=== PATIENT | female | born 1935 | race Two or more races ===

== ENCOUNTER 2020-11-19 12:48 | Inpatient (IN) | payer MEDICARE, OTHER ==
[~2020-11-19] VITALS: Ht 165.1 cm; Wt 52.9 kg
[2020-11-19 13:10] LABS: Calcium, Ionized (POC) 1.08 mmol/L (1.10-1.46); Chloride (POC) 104 mmol/L (98-108); Creatinine (POC) 1.8 mg/dL (0.6-1.3); Glucose (ISTAT POC) 178 mg/dL (70-99); Hemoglobin (POC) 12.6 g/dL (12.0-17.5); Potassium (POC) 3.7 mmol/L (3.5-5.5); Sodium (POC) 137 mmol/L (135-148); Total CO2 (POC) 19 mmol/L (21-32)
[2020-11-19 13:10] LABS: Hematocrit 36.8 % (33.0-53.0); Hemoglobin 12.2 g/dL (11.5-17.5); Mean Corpuscular HGB 30.4 pg (26.0-34.0); Mean Corpuscular HGB Conc 33.2 g/dL (31.5-36.5); Mean Corpuscular Volume 92 fL (80-100); Mean Platelet Volume 10.2 fL (9.1-12.4); Platelet Count 197 K/mm3 (150-400); RDW Coefficient Variation 11.7 % (11.7-14.2); RDW Standard Deviation 39.8 fL (35.1-46.3); Red Blood Cell Count 4.01 M/mm3 (3.80-5.90); White Blood Cell Count 4.25 K/mm3 (4.00-11.30)
[2020-11-19 13:12] LABS: Base Excess Venous -6.7 mmol/L; Bicarbonate Venous 19.4 mmol/L (24.0-30.0); PCO2 Venous 37.9 mmHg (38-42); pH Blood Venous 7.32 (7.34-7.37)
[2020-11-19 13:32] LABS: Source, Urine Catheter
[2020-11-19 13:39] LABS: BAND PERCENT MAN 3 % (0-8); BASOPHILS PERCENT MAN 0 % (0-2); EOSINOPHILS PERCENT MAN 0 % (0-6); LYMPHOCYTES % ATYPICAL MANUAL 7 % (0-0); LYMPHOCYTES ABSOLUTE MAN 0.97 K/mm3 (0.84-5.20); LYMPHOCYTES PERCENT MAN 16 % (21-46); METAMYELOCYTE ABSOLUTE MAN 0.08 K/mm3 (0.00-0.00); METAMYELOCYTE PERCENT MAN 2 % (0-0); MONOCYTES ABSOLUTE MAN 0.25 K/mm3 (0.16-1.47); MONOCYTES PERCENT MAN 6 % (4-13); NEUTROPHILS ABSOLUTE MAN 2.93 K/mm3 (1.96-9.15); SEG NEUTROPHILS PERCENT MAN 66 % (41-73); TOTAL CELLS COUNTED 100
[2020-11-19 13:48] LABS: Magnesium, Blood 1.8 mg/dL (1.6-2.4); Troponin I 0.071 ng/mL (0.000-0.040)
[2020-11-19 13:55] LABS: Ethanol (Alcohol), Blood, Med <3 mg/dL
[2020-11-19 13:56] LABS: Alanine Aminotransfer (ALT/SGP 22 U/L (12-78); Albumin, Blood 3.4 g/dL (3.4-5.0); Albumin/Globulin Ratio 0.9 (0.8-1.8); Alk Phos 82 U/L (50-136); Anion Gap 15 mmol/L (6-16); Aspartate Aminotrans (AST/SGOT 45 U/L (12-37); Bilirubin, Total 0.5 mg/dL (0.1-1.0); Blood Urea Nitrogen 28 mg/dL (8-24); Bun/Creatinine Ratio 17.3 (12.0-20.0); CO2, Blood 18 mmol/L (21-32); Calcium, Blood 9.1 mg/dL (8.5-10.1); Chloride, Blood 104 mmol/L (98-108); Creatinine, Blood 1.62 mg/dL (0.40-1.20); Globulin, Blood 3.9 g/dL (2.2-4.0); Glomerular Filtration Rate Unable to Calculate (60-); Glucose, Blood 170 mg/dL (70-99); Potassium, Blood 3.7 mmol/L (3.5-5.5); Sodium, Blood 137 mmol/L (136-145); Total Protein, Blood 7.3 g/dL (6.4-8.2)
[2020-11-19 14:03] LABS: Bilirubin, Urine Neg (Neg); Blood, Urine 3+ (Neg); Color, Urine Yellow (P-Yellow); Glucose Qualitative, Urine Neg (Neg); Ketones, Urine 1+ (Neg); Leukocyte Esterase, Urine Neg (Neg); Nitrite, Urine Neg (Neg); Protein, Urine 2+ (Neg); Specific Gravity, Urine 1.015 (1.003-1.022); Urobilinogen, Urine NORM (Normal)
[2020-11-19 14:29] LABS: U Amphetamine Screen Not Detected; U Barbituate Screen Not Detected; U Benzodiazapine Screen Not Detected; U Buprenorphine Screen Not Detected; U Cannabinoids Screen Not Detected; U Cocaine Screen Not Detected; U Methadone Screen Not Detected; U Methamphetamine Screen Not Detected; U Opiates Screen Not Detected; U Oxycodone Screen Not Detected; U Phencyclidine Screen Not Detected; U Propoxyphene Screen Not Detected
[2020-11-19 14:34] LABS: Appearance, Urine Hazy (Clear)
[2020-11-19 14:36] LABS: Bacteria Mod /hpf; Hyaline Casts 0-2 /lpf (0-2); Squamous Epithelial Cells Mod /hpf (Few)
[2020-11-19 23:37] LABS: SARS-Cov-2 (COVID-19) PCR, MMC POSITIVE (NEGATIVE)
[2020-11-20 00:42] LABS: Troponin I 0.176 ng/mL (0.000-0.040)
[2020-11-20 00:58] LABS: Creatine Kinase MB 6.2 ng/mL (0.0-3.6); Creatine Kinase MB Index 1.5 (0.0-4.0)
--- NOTE | 2020-11-20 05:46 | NUR ---
ARRIVAL TO ICU/ END OF SHIFT SUMMARY PT ARRIVED TO ICU 1 AT 0500 VIA ED BED AND WAS TRANSFERED TO ICU BED WITH SLIDE SHEET. PT IS ALERT AND ORIENTED TO SELF ONLY; DID NOT ANSWER ANY OTHER QUESTIONS; JENNY OUT DURING CARE AND UNABLE TO STATE OR POINT TO WHERE PAIN IS LOCATED; DOES NOT TOLERATE THE PRESSURE FROM SCD'S; OCCATIONALLY NODS HEAD TO Y/N QUESTIONS. SPO2 >95% ON RA. AFEBRILE. NSR WITH HR 68-72. BP 140/66. CHOWDHURY IN PLACE AND DRAINING TO GRAVITY. NS INFUSING AT 75ML/HR. SEE ADMISSION ASSESSMENT FOR FULL ASSESSMENT. WILL REPORT TO AM RN WHEN AVAILABLE.
[2020-11-20 06:24] LABS: Hemoglobin 11.8 g/dL (11.5-17.5); Mean Corpuscular HGB 30.6 pg (26.0-34.0); Mean Corpuscular HGB Conc 32.8 g/dL (31.5-36.5); Mean Corpuscular Volume 93 fL (80-100); Mean Platelet Volume 9.8 fL (9.1-12.4); Platelet Count 171 K/mm3 (150-400); RDW Coefficient Variation 12.1 % (11.7-14.2); RDW Standard Deviation 41.7 fL (35.1-46.3); Red Blood Cell Count 3.86 M/mm3 (3.80-5.90); White Blood Cell Count 4.85 K/mm3 (4.00-11.30)
[2020-11-20 07:00] LABS: Alanine Aminotransfer (ALT/SGP 23 U/L (12-78); Albumin, Blood 2.9 g/dL (3.4-5.0); Albumin/Globulin Ratio 0.8 (0.8-1.8); Alk Phos 71 U/L (50-136); Anion Gap 9 mmol/L (6-16); Aspartate Aminotrans (AST/SGOT 37 U/L (12-37); Bilirubin, Total 0.5 mg/dL (0.1-1.0); Blood Urea Nitrogen 26 mg/dL (8-24); Bun/Creatinine Ratio 19.1 (12.0-20.0); CO2, Blood 24 mmol/L (21-32); Calcium, Blood 8.3 mg/dL (8.5-10.1); Chloride, Blood 110 mmol/L (98-108); Creatinine, Blood 1.36 mg/dL (0.40-1.20); Globulin, Blood 3.5 g/dL (2.2-4.0); Glucose, Blood 76 mg/dL (70-99); Sodium, Blood 143 mmol/L (136-145); Total Protein, Blood 6.4 g/dL (6.4-8.2)
[2020-11-20 07:01] LABS: Glomerular Filtration Rate Unable to Calculate (60-)
[2020-11-20 09:29] LABS: BAND PERCENT MAN 1 % (0-8); BASOPHILS ABSOLUTE MAN 0.04 K/mm3 (0.00-0.23); BASOPHILS PERCENT MAN 1 % (0-2); EOSINOPHILS PERCENT MAN 0 % (0-6); LYMPHOCYTES ABSOLUTE MAN 1.01 K/mm3 (0.84-5.20); LYMPHOCYTES PERCENT MAN 21 % (21-46); MONOCYTES ABSOLUTE MAN 0.09 K/mm3 (0.16-1.47); MONOCYTES PERCENT MAN 2 % (4-13); NEUTROPHILS ABSOLUTE MAN 3.68 K/mm3 (1.96-9.15); SEG NEUTROPHILS PERCENT MAN 75 % (41-73); TOTAL CELLS COUNTED 100
--- NOTE | 2020-11-20 09:40 | NUR ---
DR ANGUIANO AT BEDSIDE. PT NOW MEDICAL FLOOR STATUS. WILL TX WHEN BED AVAILABLE. UPDATED VIA TELEPHONE.
[2020-11-20 10:27] LABS: Troponin I 0.17 ng/mL (0.000-0.040)
[2020-11-20 10:44] LABS: Creatine Kinase MB 5.1 ng/mL (0.0-3.6); Creatine Kinase MB Index 1.4 (0.0-4.0)
--- NOTE | 2020-11-20 17:12 | NUR ---
REPORT TO FARIHA DILLON
--- NOTE | 2020-11-20 17:18 | NUR ---
REPORT CALLED TO SANTANA FRIED. PT TX VIA BED TO ROOM 345. NO ACUTE CHANGES T/O SHIFT.
--- NOTE | 2020-11-20 18:31 | NUR ---
TRANSFER PT WAS TRANSFERRED FROM ICU TO 345 @1800
[2020-11-21 05:36] LABS: Hematocrit 36.9 % (33.0-51.0); Hemoglobin 12.3 g/dL (11.5-16.0); Mean Corpuscular HGB 30.3 pg (26.0-34.0); Mean Corpuscular HGB Conc 33.3 g/dL (31.5-36.5); Mean Corpuscular Volume 91 fL (80-100); Mean Platelet Volume 9.7 fL (9.1-12.4); Platelet Count 197 K/mm3 (150-400); RDW Coefficient Variation 11.9 % (11.7-14.2); RDW Standard Deviation 39.7 fL (35.1-46.3); Red Blood Cell Count 4.06 M/mm3 (3.80-5.20)
[2020-11-21 05:49] LABS: Bun/Creatinine Ratio 19.1 (12.0-20.0); Calcium, Blood 8.7 mg/dL (8.5-10.1); Creatinine, Blood 1.1 mg/dL (0.40-1.00); Potassium, Blood 3.6 mmol/L (3.5-5.5)
[2020-11-21 06:23] LABS: BAND PERCENT MAN 2 % (0-8); BASOPHILS PERCENT MAN 0 % (0-2); EOSINOPHILS PERCENT MAN 0 % (0-6); LYMPHOCYTES % ATYPICAL MANUAL 1 % (0-0); LYMPHOCYTES ABSOLUTE MAN 1.48 K/mm3 (0.84-5.20); LYMPHOCYTES PERCENT MAN 26 % (21-46); MONOCYTES ABSOLUTE MAN 0.38 K/mm3 (0.16-1.47); MONOCYTES PERCENT MAN 7 % (4-13); NEUTROPHILS ABSOLUTE MAN 3.63 K/mm3 (1.96-9.15); SEG NEUTROPHILS PERCENT MAN 64 % (41-73); TOTAL CELLS COUNTED 100
--- NOTE | 2020-11-22 05:56 | NUR ---
SHIFT SUMMARY PT DID NOT SLEEP AT ALL THIS EVENING. SCREAMS OUT FREQUENTLY. PT CANNOT EXPLAIN WHY SHE IS YELLING OUT. DENIES PAIN. YELLS RANDOMLY AND ALSO WHENEVER RECIEVING CARE. CHOWDHURY IN PLACE. PATENT AND DRAINING. PT OCCASSIONALLY PULLS ON CATHETER. PT PULLED OUT IV THIS EVENING. WILL ATTEMPT TO RESTART. TELEMETRY RUNNING SR IN THE 60'S. OTHERWISE NO ACUTE CHANGES THIS EVENING. WILL CONTINUE TO MONITOR AND REPORT TO DAY RN.
[2020-11-22] MEDS ORDERED: ERGO50000 PO (06:39)
[2020-11-22] MEDS ORDERED: DONE5 PO (06:40)
--- NOTE | 2020-11-22 14:18 | NUR ---
Spoke with Dr Catherine and discussed case. Family may benefit from discussion regarding goals of care including consideration of hospice. 85 year old female admitted for Afib with RVR. Pt medical history and comorbidities include: Dementia, Osteoporosis, Hyperlipidemia, Anxiety, Meningioma, Breast Ductal Carcinoma, and SVT. Pt resting in bed and is pleasantly confused. Pt unable to participate in a meaningful conversation. Pt appears comfortable with no S/S of distress at this time. Reviewed chart including PT and OT assessments. Pt is recommended for 24 hour caregiving or memory care. Pt requires assistance with bed mobility, transfers, and appears to be unsafe for ambulation at this time. Spoke with Primary RN and discussed case. Pt requires assistance bathing, dressing, eating, and currently has a Durán Catheter in place. Pt has significantly poor appetite. Called Pt's spouse Jose Alejandro and then called Pt's daughter in law Shari. Engaged in therapeutic conversation regarding goals of care. Discussed recommendations and considering hospice. Educated on hospice philosophy with V/U made by family. Family is agreeable to hospice services. Discussed hospice agencies to choose from with spouse choosing [facility]. Daughter in law is requesting some time to prepare Pt's home before she is D/C. Spouse Jose Alejandro reports having a family member who can move in to his home to assit with Pt's care needs. Spoke with Dr Cahterine, Public Health Sanitarian Kristal, and [facility] Liason Rachael. Discussed case and family preference for [facility]. PPS 30% ADLs 6/6 FAST 7C Palliative Care will remain available.
--- NOTE | 2020-11-22 19:01 | NUR ---
SHIFT SUMMARY PT IS LYING IN BED, AXO TO SELF. RM AIR. TELE. PT SEEMS TO EXPRESS PAIN WITH MOVING IN LEGS, BUT DENIES PAIN AND NEED FOR PAIN MEDICATION AND APPEARS TO SWITCH BETWEEN LEGS PER PT AND OT. IV AND CATHETER ARE GAURDED TO PREVENT PULLING. HOSPICE CONSULT WAS CONDUCTED TODAY AND FAMILY IS BEING CONSULTED ABOUT PLANS TO MOVE FORWARD. WILL CONTINUE TO MONITOR.
--- NOTE | 2020-11-23 18:22 | NUR ---
PATIENT IS ALERT AND DISORIENTED. SHE SCREAMS WHEN STAFF TOUCHES HER OR REPOSITIONS HER IN BED. SHE HAS DIFFICULTY FOLLOWING DIRECTION TO SWALLOW WHEN TAKING MEDICATIONS. ON RA. THE PATIENT'S WAS ABLE TO VISIT TODAY. PLAN IS TO DISCHARGE ON THURSDAY ON HOSPICE. WILL CONTINUE TO MONITOR
--- NOTE | 2020-11-24 04:37 | NUR ---
SHIFT SUMMARY ALERT, MINIMAL SPEECH. CALLS OUT WITH REPOSITIONING/TURNING. DIFFICULTY FOLLOWING DIRECTIONS. BASICALLY REFUSES TO SWALLOW. DENIES NEED FOR PO FLUIDS. NO C/O PAIN/DISCOMFORT. NO ACUTE CHANGES NOTED OVERNIGHT. CHOWDHURY SECURED AND DRAINING TO GRAVITY. BED IN LOWEST; ALARM ON. CALL LIGHT AND BLEONGINGS WITHIN REACH. CONTINUE WITH CURRENT PLAN OF CARE. REPORT TO ONCOMING RN.
--- NOTE | 2020-11-24 15:19 | NUR ---
MIDSHIFT SUMMARY A/O to self. Refused AM meds, patient spat meds back out after it was given. Dr. Catherine was made aware. No other changes.
--- NOTE | 2020-11-24 17:18 | NUR ---
PATIENT IS ALERT AND DISORIENTED. SHE IS NOW COMFORT CARE. THE PATIENT'S IS AT THE BEDSIDE. THE PATIENT IS LAYING IN BED. NO COMPLAINTS AT THIS TIME. CHOWDHURY IN PLACE FOR RETENSION. WILL CONTINUE TO MONITOR
--- NOTE | 2020-11-25 04:57 | NUR ---
SHIFT SUMMARY- PT. ON COMFORT CARE, CONFUSED. NO S/S OF PAIN OR DISCOMFORT DURING THE NIGHT. PT. SPIT OUT SCHEDULED MEDS LAST NIGHT. SLEPT T/O THE NIGHT, NO APPARENT DISTRESS NOTED. CHOWDHURY CATHETER PATENT AND DRAINING. CALL LIGHT WITHIN REACH AND SIDE RAILS UPX3. WILL CONT TO MONITOR.
--- NOTE | 2020-11-25 18:37 | NUR ---
Alert and resposive.Denies any pain. No changes occur during the shift. Like to pocket meds when given , please encourage to take meds and observe. Contine on comfort care ,one to one to feeding. continue to monitor.
--- NOTE | 2020-11-25 22:00 | NUR ---
COMFORT CARE APPEARS TO BE RESTING WITHOUT ANY NEEDS AT THIS TIME. REFUSES TO TAKE MEDICATIONS. OFFERED PO FLUIDS; STATES NOT THIRSTY. CHOWDHURY SECURED AND DRAINING TO GRAVITY. BED IN LOWEST; ALARM ON. CALL LIGHT AND BELONGINGS WITHIN REACH
--- NOTE | 2020-11-26 | NUR ---
COMFORT CARE APPEARS TO BE RESTING. DOES NOT STATE ANY NEEDS AT THIS TIME. OFFERED PO FLUIDS OR NUTRITION; REFUSED AT THIS TIME. CHOWDHURY DRAINING TO GRAVITY. NO ACUTE CHANGES AT THIS TIME. BED REMAINS IN LOWEST; ALARM ON. CALL LIGHT WITHIN REACH; DOES NOT UTILIZE. CONTINUE WITH CURRENT PLAN OF CARE
--- NOTE | 2020-11-26 03:56 | NUR ---
SHIFT SUMMARY ALERT. MINIMAL SPEECH. CALLS OUT /c TURNING/REPOSITIONING. CHOWDHURY SECURE AND DRAINING TO GRAVITY. APPEARED TO REST T/O THE NIGHT. NO ACUTE CHANGES NOTED. BED REMAINS IN LOWEST POSITION; ALARM ON. CALL LIGHT WITHIN REACH; DOES NOT UTILIZE. CONTINUE WITH CURRENT PLAN OF CARE. REPORT TO ONCOMING RN.
--- NOTE | 2020-11-26 16:34 | NUR ---
SHIFT SUMMARY PT IS AO. PT DENIES PAIN, N/V, SOB. PT REMAINS IN ENHANCED ISOLATION PRECUATIONS. PT HAD ONE VISITOR PER COMFORT CARE POLICIES. PLAN IS TO POTENTIALLY DC ON HOSPICE TOMORROW. PT REFUSES MEDS AT TIMES. PT HAS POOR APPETITE. PT IS IN BED, CALL LIGHT IN REACH, LOW POSITION.
[2020-11-27] MEDS ORDERED: ACET325 PO (08:42)
--- NOTE | 2020-11-27 12:59 | NUR ---
PT DISCHARGED VIA GURNEY WITH AMBULANCE TRANSPORT HOME ON HOSPICE. PERSONAL BELONGINGS AND DISCHARGE INSTRUCTIONS SENT HOME WITH PT.
--- NOTE | 2020-11-27 14:15 | NUR ---
Pt. not in the room she is [facility] home [facility]
== END 2020-11-27 13:04 | disposition hospice, home (50) | DRG 871 ==
LOC: ER 12:48 → EDBD 12:48 → EDSEX 23:27 → ICUE 23:27 → ERHOLD 23:27 → ICUE 11-20 05:05 → MEDS 11-20 17:22
PROVIDERS: Internal Medicine; Student in an Organized Health Care Education/Training Program; ADMIT Internal Medicine
PROC: 8E0ZXY6 Isolation (ICD-10-PCS; principal; 2020-11-19)
DX: A41.89 Other specified sepsis (principal); U07.1 COVID-19; J12.82 Pneumonia due to coronavirus disease 2019; I60.9 Nontraumatic subarachnoid hemorrhage, unspecified; J15.9 Unspecified bacterial pneumonia; Z51.5 Encounter for palliative care; I48.91 Unspecified atrial fibrillation; R62.7 Adult failure to thrive; R93.0 Abnormal findings on diagnostic imaging of skull and head, not elsewhere classified; R77.8 Other specified abnormalities of plasma proteins; N18.30 Chronic kidney disease, stage 3 unspecified; G30.9 Alzheimer's disease, unspecified; R82.90 Unspecified abnormal findings in urine; F02.80 Dementia in other diseases classified elsewhere, unspecified severity, without behavioral disturbance, psychotic disturbance, mood disturbance, and anxiety; Z68.23 Body mass index [BMI] 23.0-23.9, adult; E86.0 Dehydration; F32.9 Major depressive disorder, single episode, unspecified; E78.5 Hyperlipidemia, unspecified; F41.9 Anxiety disorder, unspecified; M81.0 Age-related osteoporosis without current pathological fracture; Z88.5 Allergy status to narcotic agent; Z85.3 Personal history of malignant neoplasm of breast; Z88.1 Allergy status to other antibiotic agents; Z90.710 Acquired absence of both cervix and uterus; Z98.890 Other specified postprocedural states; Z90.12 Acquired absence of left breast and nipple; Z90.49 Acquired absence of other specified parts of digestive tract
CPT/HCPCS: 36415; 51702; 70450; 70551; 71046; 80047; 80048; 80053; 81001; 82550; 82553; 82803; 83605; 83735; 83880; 84145; 84484; 85014; 85025; 87086; 92526; 92610; 93005; 93010; 94762; 96365; 96375; 96376; 97162; 97166; 97530; 97535; 99285-25; A9270; G0480; J0456; J0696; J1953; J7030; J7050; J7120; U0004